=== PATIENT | female | born 1960 | race Caucasian/White ===

== ENCOUNTER → 2019-05-14 | Outpatient (CLI) | payer MEDICARE, OTHER ==
[2019-05-14 13:44] LABS: African American GFR (CKD) >90 (>60 ml/min/1.73 sqM); Anion Gap 7 mmol/L; Blood Urea Nitrogen 11 mg/dL (7-17); Calcium 9.7 mg/dL (8.4-10.2); Carbon Dioxide 31 mmol/L (22-30); Chloride 99 mmol/L (98-107); Glucose 194 mg/dL (74-99); Non-African American GFR(CKD) >90 (>60 ml/min/1.73 sqM); Potassium 4.3 mmol/L (3.5-5.1); Sodium 137 mmol/L (137-145)
--- NOTE | 2019-05-14 15:40 | CT ---
EXAMINATION TYPE: CT pelvis w con DATE OF EXAM: 05/14/2019 COMPARISON: None. HISTORY: Right sided buttock wound x 4 months. Gluteal region abscess per order. CT DLP: 1251.2 mGycm Automated exposure control for dose reduction was used. CONTRAST: CT pelvis Performed with oral and with IV Contrast, patient injected with 100 mL of Isovue M300. FINDINGS: There is focal skin thickening and curvilinear density right lateral gluteal region axial image 16 me asuring 4.8 x 1.7 cm. Remainder of the posterior gluteal fat shows occasional injection granuloma for reference left upper aspect axial image 4. There is no well-formed fluid collection or drainable abs cess. Anteverted uterus is seen. Bladder within normal limits. Multiple adjacent pelvic phleboliths. Visual ized bowel shows no suspicious dilatation. Subcentimeter lesion posterior upper pole left kidney is t oo small to further characterize axial image 1 but likely benign. Cholecystectomy clips are seen. No free fluid in pelvis. There is postsurgical change to the lower lumbar spine with posterior interpedi cular rods and screws and ossific fusion L4-L5 level. There is grade 1 anterolisthesis L3 on L4 with moderate to severe disc space narrowing and vacuum disc phenomenon. There is moderate disc space narr owing and vacuum disc phenomenon lumbosacral junction. There is facet arthropathy lower lumbar spine. Lower laminectomy defects are present. IMPRESSION: No suspicious focal thick walled fluid collection to suggest drainable abscess. Nonspecif ic curvilinear soft tissue right lateral gluteal region extending to skin surface could reflect produ ct of chronic cellulitis.
== END | disposition home or self-care (01) ==
LOC: RADCTMAIN 12:28
PROVIDERS: ATTEND Internal Medicine Infectious Disease
DX: L02.31 Cutaneous abscess of buttock (principal); S31.819A Unspecified open wound of right buttock, initial encounter
CPT/HCPCS: 80048; 72193; 36415; Q9967 ×2